=== PATIENT | female | born 1985 | race African-American/Black ===

== ENCOUNTER 2016-11-05 11:35 | Emergency (ER) | payer MEDICAID ==
[~2016-11-05] VITALS: Ht 154.9 cm; Wt 59.0 kg
[~2016-11-05 11:35] MED LIST: LACTATED RINGER'S 1,000 ML IV ONE; LACTATED RINGER'S 1,000 ML IV SCH; TERBUTALINE SULFATE 1 MG/ML 1ML VIAL SC SCH
[2016-11-05 11:54] VITALS: BP 128/64
[2016-11-05] MEDS ORDERED: SODIUM CHLORIDE 0.9% 500 ML IVB ONE (12:17)
[2016-11-05] MEDS ORDERED: MORPHINE SULFATE 4 MG/ML SYRG IV ONE (12:30)
[2016-11-05] MEDS ORDERED: ONDANSETRON HCL 4 MG/2 ML VIAL IV ONE (12:30)
[2016-11-05 13:30] LABS: Basophils # (auto) 0 uL; Basophils % (auto) 0.3 % (0.0-2.0); Eosinophils # (auto) 0 uL; Eosinophils % (auto) 0.2 % (0.0-7.0); Hematocrit 33.3 % (36.0-46.0); Hemoglobin 10.9 g/dL (12.2-16.2); Lymphocytes # (auto) 1.2 uL; Lymphocytes % (auto) 17.7 % (10.0-50.0); Mean Corpuscular Hemoglobin 29.1 pg (28.0-32.0); Mean Corpuscular Hgb Conc. 32.7 g/dL (32.0-36.0); Mean Platelet Volume 7.8 fL (7.4-10.4); Monocytes # (auto) 0.4 uL; Monocytes % (auto) 6.4 % (0.0-12.0); Neutrophils # (auto) 5.1 uL; Neutrophils % (auto) 75.4 % (37.0-80.0); Platelet Count (auto) 303 10^3/uL (140-450); Red Cell Distribution Width 13.6 % (11.6-16.0); White Blood Cell 6.8 10^3/uL (4.4-10.8)
[2016-11-05 13:36] LABS: Albumin 2.9 g/dL (3.4-5.0); BUN/Creatinine Ratio 8.9; Bilirubin, Total 0.3 mg/dL (0.2-1.0); Calcium 8.6 mg/dL (8.5-10.1); Potassium 3.3 mmol/L (3.5-5.1); Total Protein 6.6 g/dL (6.4-8.2)
[2016-11-05 13:37] LABS: Urine RBC None Seen /hpf (0 - 4)
[2016-11-05 14:23] LABS: Urine Bilirubin Negative (Negative); Urine Blood Negative /uL (Negative); Urine Color Yellow (Yellow); Urine Glucose Normal (Normal); Urine Ketone Negative (Negative); Urine Mucus FEW (None Seen); Urine Nitrite Negative (Negative); Urine Squamous Epithelial Cell FEW /hpf (<5); Urine Urobilinogen Normal (Negative)
[2016-11-05] MEDS ORDERED: POTASSIUM CHL 10% (20 MEQ/15ML) ORAL SOLN GT ONE (14:45)
[2016-11-05] MEDS ORDERED: POTASSIUM CHL 20MEQ/100ML 100 ML IV ONE (14:45)
== END 2016-11-05 17:39 | disposition home or self-care (01) ==
LOC: EDSTATUS 11:35 → ER 11:37
DX: O26.892 Other specified pregnancy related conditions, second trimester (principal); R10.9 Unspecified abdominal pain; Z3A.18 18 weeks gestation of pregnancy
CPT/HCPCS: 36415; 59025; 76801; 80053; 81001; 81002; 82150; 83690; 85025; 96361; 96365; 96366; 96375; 99285; G0434; J2270; J2405; J7030; 96374